=== PATIENT | female | born 2000 | race Caucasian/White ===

== ENCOUNTER 2019-11-03 20:23 | Emergency (ER) | payer OTHER ==
[~2019-11-03] VITALS: Ht 175.3 cm; Wt 82.3 kg
[2019-11-03] MEDS ORDERED: CETI-450 PO (20:29)
[2019-11-03] MEDS ORDERED: ESCI20TA87 PO (20:29)
[2019-11-03] MEDS ORDERED: ALPR0.255 PO (20:29)
[2019-11-03] MEDS ORDERED: RISP2TAB23 PO (20:29)
[2019-11-03] MEDS ORDERED: LAMO100 PO (20:29)
[2019-11-03 22:44] VITALS: BP 129/77
[2019-11-03 22:56] LABS: BASOPHILS % (AUTO) 0.8 % (0.0-2.0); EOSINOPHILS % (AUTO) 1.9 % (1.0-6.0); HEMATOCRIT 35.3 % (36-46); HEMOGLOBIN 11.9 g/dL (12.0-16.0); LYMPHOCYTES # (AUTO) 2.9 K/uL (1.0-4.8); LYMPHOCYTES % (AUTO) 38.1 % (22.0-44.0); MEAN CORPUSCULAR HEMOGLOBIN 27.5 pg (26.0-34.0); MEAN CORPUSCULAR HGB CONC 33.6 G/dL (31.0-37.0); MEAN CORPUSCULAR VOLUME 82 fL (80-100); MONOCYTES # (AUTO) 0.6 K/uL (0.1-1.0); NEUTROPHILS # (AUTO) 3.8 K/uL (1.8-7.7); NEUTROPHILS % (AUTO) 51.2 % (40.0-70.0); PLATELET COUNT (AUTO) 301 K/uL (150-450); RED BLOOD CELL COUNT(AUTO) 4.31 MIL/uL (4.00-5.20); RED CELL DISTRIBUTION WIDTH 14.3 % (11.5-14.5)
[2019-11-03 23:06] LABS: ANION GAP 4 mmol/L (8-16); CALCIUM, TOTAL 9.4 mg/dL (8.8-10.5); CARBON DIOXIDE 28 mmol/L (22-29); CHLORIDE 103 mmol/L (98-107); CREATININE 0.84 mg/dL (0.60-1.30); GLOMERULAR FILTR. RATE CALC > 60 mL/min (>60); GLUCOSE,RANDOM 97 mg/dL (70-110); SODIUM SERUM 135 mmol/L (136-145); UREA NITROGEN, BLOOD 11 mg/dL (7-18)
[2019-11-03 23:06] LABS: AMPHET/METH SCREEN,URINE NEGATIVE (NEGATIVE); BARBITURATE SCREEN, URINE NEGATIVE (NEGATIVE); BENZODIAZEPINES SCREEN,URINE NEGATIVE (NEGATIVE); CANNABINOID SCREEN,URINE NEGATIVE (NEGATIVE); COCAINE SCREEN,URINE NEGATIVE (NEGATIVE); METHADONE SCREEN, URINE NEGATIVE (NEGATIVE); OPIATE SCREEN,URINE NEGATIVE (NEGATIVE)
[2019-11-03 23:08] LABS: PHENCYCLIDINE SCREEN,URINE NEGATIVE (NEGATIVE)
[2019-11-03 23:13] LABS: ALANINE AMINOTRANSFERASE 25 U/L (12-78); ALBUMIN 3.9 g/dL (3.4-5.0); ALKALINE PHOSPHATASE 79 U/L (46-116); ASPARTATE AMINOTRANSFERASE 16 U/L (15-37); BILIRUBIN,TOTAL 0.1 mg/dL (0.1-1.0); TOTAL PROTEIN, SERUM 7.3 g/dL (6.4-8.2)
== END 2019-11-03 23:33 | disposition home or self-care (01) ==
LOC: EMS 20:27
DX: F31.9 Bipolar disorder, unspecified (principal); Z88.0 Allergy status to penicillin; Z79.899 Other long term (current) drug therapy
CPT/HCPCS: 36415; 80053; 80307; 84702; 85025; 99284; G0480

== ENCOUNTER 2020-04-05 20:13 | Emergency (ER) | payer OTHER ==
[~2020-04-05] VITALS: Ht 172.7 cm; Wt 86.4 kg
[~2020-04-05 20:13] MED LIST: ALPR0.255 PO; CETI-450 PO; ESCI20TA87 PO; LAMO100 PO; RISP2TAB45 PO
[2020-04-05] MEDS ORDERED: LITH300C3 PO (21:32)
[2020-04-05] MEDS ORDERED: DIVA-112 PO (21:32)
[2020-04-05 22:47] VITALS: BP 102/66
== END 2020-04-05 22:49 | disposition home or self-care (01) ==
LOC: EMS 20:21
DX: R62.50 Unspecified lack of expected normal physiological development in childhood (principal); F31.9 Bipolar disorder, unspecified
CPT/HCPCS: 99285; Z7502

== ENCOUNTER 2022-11-07 16:14 | Emergency (ER) | payer OTHER ==
[~2022-11-07] VITALS: Ht 172.7 cm; Wt 84.1 kg
[~2022-11-07 16:14] MED LIST changes: -ALPR0.255 PO; +DIVA-112 PO; -ESCI20TA87 PO; -LAMO100 PO; +LITH300C3 PO
[2022-11-07] MEDS ORDERED: LITH600C5 PO (16:27)
[2022-11-07] MEDS ORDERED: DOXY-469 PO (16:27)
[2022-11-07] MEDS ORDERED: VALP250S27 PO (16:27)
[2022-11-07] MEDS ORDERED: POLY10DR5 OU (16:27)
[2022-11-07] MEDS ORDERED: RISP1SOL11 PO (16:27)
[2022-11-07] MEDS ORDERED: DOCU100C33 PO (16:27)
[2022-11-07 17:00] VITALS: TEMP 98.6
[2022-11-07 17:10] LABS: COVID AG,FIA SOURCE NASAL SWAB
[2022-11-07 17:20] VITALS: BP 140/95; PULSE 107; RESP 18
[2022-11-07 17:28] LABS: RAPID GROUP A STREP NEGATIVE (NEGATIVE)
[2022-11-07 17:31] LABS: SARS-COV2 (COVID) ANTIGEN,FIA Negative (Negative)
[2022-11-07 17:33] LABS: INFLUENZA TYPE A NEGATIVE FOR TYPE A (NEGATIVE); INFLUENZA TYPE B NEGATIVE FOR TYPE B (NEGATIVE)
[2022-11-07] MEDS ORDERED: ALBUTEROL SULFATE HFA 90 MCG/PUFF 8 GM INHALER IH ONE (17:45)
[2022-11-07] MEDS ORDERED: OXYMETAZOLINE HCL 0.05% 15 ML NASAL SPRAY NASAL ONE (17:45)
[2022-11-07] MEDS ORDERED: OLAN10TA22 PO (17:53)
[2022-11-07] MEDS ORDERED: LITH300C3 PO (17:53)
== END 2022-11-07 19:29 | disposition home or self-care (01) ==
LOC: EMS 16:15
DX: J40 Bronchitis, not specified as acute or chronic (principal); Z88.0 Allergy status to penicillin; Z20.822 Contact with and (suspected) exposure to COVID-19
CPT/HCPCS: 99284; 71045; 87426; 87430; 87804; 94640; J3535